=== PATIENT | female | born 1940 | race Caucasian/White ===

== ENCOUNTER → 2024-06-25 13:37 | Outpatient (CLI) | payer MEDICARE, SELFPAY ==
--- NOTE | 2024-06-25 13:42 | DI.ECHO.S_ITS ---
[place] +---------+ [facility] : : [address] : : [place] : : [id number] : : Phone: [phone] Echocardiogram Report + + :Name: DERREK DOMINGUEZ Study Date: 06/25/2024 Height: 63.5 in: :[facility] ReadingLocation: Weight: 142 lb : : Gender: Female BSA: 1.7 m2 : :: 1940 Age: 83 yrs BP: 129/65 mmHg: :Reason For Study: ABRNOMAL EKG, HEART MURMUR : :Ordering Physician: : :BETTY BASS Performed By: Ann Bernard : :Referring: BETTY BASS : + + Interpretation Summary 1) Normal left ventricular thickness, size, wall motion, and systolic function (EF 60-65%). 2) Normal right ventricular size and function. 3) The aortic valve is mildly calcified. No significant valvular stenoses or regurgitation present. 4) No prior Echo available for comparison. Procedure: A two-dimensional transthoracic echocardiogram with color flow and Doppler was performed. The study quality was technically adequate. There is no prior echocardiogram noted for this patient. The patient was in sinus bradycardia with heart rates between 48-57 bpm during the exam. Left Ventricle: Proximal septal thickening is noted. The left ventricle is normal in size and wall thickness. The ejection fraction is estimated to be 60-65%. Left ventricular systolic function appears normal without focal wall motion abnormalities. Diastolic function could not be accurately assessed due to confounding valvular disease. Right Ventricle: The right ventricle is normal in size and function. Atria: The left atrial size is normal. Right atrial size is normal. There is no Doppler evidence for an interatrial shunt. Mitral Valve: There is moderate mitral annular calcification. The mitral valve leaflets appear mildly thickened, but open well. There is mild mitral regurgitation. Aortic Valve: The aortic valve is mildly calcified. The aortic valve is trileaflet. The aortic valve opens well. There is no aortic valve stenosis. No aortic regurgitation is present. Tricuspid Valve: The tricuspid valve is normal in structure and function. There is mild tricuspid regurgitation. The right ventricular systolic pressure is estimated to be at least 28 mmHg based on an estimated right atrial pressure of 3 mm Hg. Pulmonic Valve: The pulmonic valve leaflets are thin and pliable; valve motion is normal. There is no pulmonic valvular regurgitation. Great Vessels: The aortic root is normal size. The dimensions of the ascending aorta are normal. The IVC is of normal diameter and collapses greater than 50% with a sniff. This suggests a low right atrial pressure of 3 mm Hg. Pericardium/ Pleura There is no pericardial effusion. There is no pleural effusion. MMode/2D Measurements & Calculations LVIDd: 4.0 cm LVOT diam: 2.0 cm LVIDs: 2.5 cm Ao root diam: 2.8 cm FS: 37.8 % asc Aorta Diam: 2.9 cm IVSd: 1.1 cm Ao Arch Diam (Prox Trans): 2.0 cm LVPWd: 0.93 cm LV luz. diameter/BSA (cm/m^2): 2.4 LV sys. diameter/BSA (cm/m^2): 1.5 LA A2 area: 22.3 cm2 RA long axis: 4.7 cm LA A4 area: 11.8 cm2 RA area: 14.1 cm2 LA length (vol): 4.8 cm RA vol: 35.9 ml LA vol: 46.8 ml RA : 21.3 ml/m2 LA vol index: 27.8 ml/m2 IVC diam: 1.7 cm RVD1 (basal): 3.2 cm TAPSE: 2.3 cm Doppler Measurements & Calculations Ao V2 max: 220.5 cm/sec LVOT Max Tariq: 122.6 cm/sec Ao V2 mean: 150.6 cm/sec LV V1 max P.0 mmHg Ao max P.4 mmHg LV V1 VTI: 31.1 cm Ao mean P.0 mmHg TAWNYA(I,D): 2.0 cm2 Ao V2 VTI: 50.4 cm TAWNYA(V,D): 1.8 cm2 sev ratio: 0.62 TAWNYA indexed to BSA (cm^2/m^2): 1.2 MV E max tariq: 103.7 cm/sec TR max tariq: 251.4 cm/sec MV A max tariq: 148.4 cm/sec TR max P.3 mmHg MV E/A: 0.70 PA V2 max: 150.5 cm/sec Med Peak E' Tariq: 4.5 cm/sec PA V2 mean: 106.1 cm/sec E/E' med: 23.0 PA mean P.1 mmHg Lat Peak E' Tariq: 3.7 cm/sec PA pr(Accel): 32.8 mmHg E/E' lat: 27.7 E/e' average: 25.3 MV dec time: 0.43 sec SV(LVOT): 98.5 ml Reading Physician:03:13 PM
== END ==
PROVIDERS: PCP Nurse Practitioner Family; Referring Provider Nurse Practitioner Family; Visit Provider Nurse Practitioner Family
DX: I08.1 Rheumatic disorders of both mitral and tricuspid valves (principal); R94.31 Abnormal electrocardiogram [ECG] [EKG]; R01.1 Cardiac murmur, unspecified; E78.5 Hyperlipidemia, unspecified; E11.9 Type 2 diabetes mellitus without complications; I10 Essential (primary) hypertension
CPT/HCPCS: 93306